=== PATIENT | male | born 1965 | race Native Hawaiian/Other Pacific Islander ===

== ENCOUNTER 2017-03-26 10:19 | Day surgery (SDC) | payer OTHER ==
[2017-03-26] MEDS ORDERED: NS 1,000 ML IV SCH (11:00)
[2017-03-26] MEDS ORDERED: CEFAZOLIN 1 GM/DEXTROSE/50 ML BAG IV ONE (11:08)
[2017-03-26] MEDS ORDERED: fentaNYL 100 MCG/2 ML INJ ONE (11:55)
[2017-03-26] MEDS ORDERED: MIDAZOLAM 2 MG/2 ML VIAL ONE (11:56)
[2017-03-26] MEDS ORDERED: IOPAMIDOL (ISOVUE-300) 100 ML BTL ONE (12:05)
[2017-03-26 12:50] VITALS: TEMP 98.1
[2017-03-26 13:17] VITALS: BP 126/82; RESP 16
[2017-03-26 13:30] VITALS: O2SAT 95
== END 2017-03-26 13:57 | disposition home or self-care (01) ==
LOC: FIMAGING 10:19
PROVIDERS: ATTEND Specialist
PROC: 0T768DZ Dilation of Right Ureter with Intraluminal Device, Via Natural or Artificial Opening Endoscopic (ICD-10-PCS; principal; 2017-03-26 12:20)
DX: N13.5 Crossing vessel and stricture of ureter without hydronephrosis (principal)
CPT/HCPCS: C1729; C1769; J0690; J1644; J2250; J3010; Q9967